=== PATIENT | female | born 1980 | race Caucasian/White ===

== ENCOUNTER 2018-07-18 16:47 | Emergency (ER) | payer MEDICAID ==
[~2018-07-18] VITALS: Ht 157.5 cm; Wt 99.0 kg
[2018-07-18 16:56] VITALS: Ht 157.5 cm; Wt 99.0 kg
[2018-07-18] MEDS ORDERED: CALAMINE TOP (17:20)
[2018-07-18] MEDS ORDERED: ACET500C5 PO (17:20)
[2018-07-18] MEDS ORDERED: BEN25 PO (17:20)
--- NOTE | 2018-07-18 17:22 | ERD ---
ER Documentation Chief Complaint Chief Complaint GENERALIZED ITCHY RASH WITH FEVER X 5 DAYS HPI This 38-year-old female presents with 5-day history of blisters and a rash which are itchy on the face, trunk and extremities. She denies any measured fevers although felt febrile. She denies any cough, shortness breath, vomiting, abdominal pain, urinary complaints. ROS All systems reviewed and are negative except as per history of present illness. Medications Home Meds Active Scripts Calamine* (Calamine*) 120 Ml Lotion, 1 APPLIC TOP Q4H for RASH for 7 Days, EA Prov:ODILIA GARCIA MD 07/18/18 Diphenhydramine Hcl* (Benadryl*) 25 Mg Cap, 25 MG PO Q6, #20 CAP Prov:ODILIA GARCIA MD 07/18/18 Acetaminophen* (Tylophen*) 500 Mg Capsule, 1 CAP PO Q6H PRN for PAIN AND OR ELEVATED TEMP, #20 CAP Prov:ODILIA GARCIA MD 07/18/18 Allergies Allergies: Coded Allergies: No Known Allergies (Verified Allergy, Mild, 12/28/11) No Known Drug Allergy (Unverified Allergy, Unknown, 04/12/14) PMhx/Soc History of Surgery: Yes (C [facility], APPENDECTOMY 2001) Anesthesia Reaction: No Hx Neurological Disorder: No Hx Respiratory Disorders: No Hx Cardiac Disorders: No Hx Psychiatric Problems: No Hx Miscellaneous Medical Probl: Yes (HERNIA) Hx Alcohol Use: No Hx Substance Use: No Hx Tobacco Use: No FmHx Family History: No diabetes, No coronary disease, No other Physical Exam Vitals Vital Signs Date Temp Pulse Resp B/P (MAP) Pulse Ox O2 O2 Flow FiO2 Time Delivery Rate 07/18/18 99.4 81 16 135/78 99 Room Air 18:47 (97) 07/18/18 99.4 86 18 143/80 99 16:56 (101) Physical Exam Const: No acute distress Head: Atraumatic Eyes: Normal Conjunctiva ENT: Normal External Ears, Nose and Mouth. Neck: Full range of motion. No meningismus. Resp: Clear to auscultation bilaterally Cardio: Regular rate and rhythm, no murmurs Abd: Soft, non tender, non distended. Normal bowel sounds Skin: No petechiae or purpura. Scattered vesicular erythematous lesions on the face, trunk and extremities. Back: No midline or flank tenderness Ext: No cyanosis, or edema Neur: Awake and alert Psych: Normal Mood and Affect Procedures/MDM She presents with signs and symptoms of uncomplicated varicella. Will treat with Benadryl, Tylenol, Calan, primary care follow-up, return precautions and measures to prevent to unvaccinated or other susceptible individuals. The patient was stable with no new complaints during the ER course. Clinically, there is no current evidence to suggest meningitis, sepsis, acute abdomen, pneumonia, stroke, acute coronary syndrome, pulmonary embolism, aortic dissection or any other emergent condition appearing to require further evaluation or hospitalization. Patient counseled regarding my diagnostic impression and care plan. Prior to discharge all questions answered. Pt agrees with treatment plan and understands strict return precautions. Pt is instructed to follow up with primary care provider within 24-48 hours. Precautionary instructions provided including instructions to return to the ER if not improving or for any worsening or changing symptoms or concerns. Departure Diagnosis: Primary Impression: Varicella Varicella complications: without complication Qualified Codes: B01.9 - Varicella without complication Condition: Stable Patient Instructions: Chickenpox Additional Instructions: Cheque otro vez con bray doctor primario en el proximo mason or regresa para mas o nueva simptomas. ES CONTIAGIOSA A LOS JAYLIN SIN VACCUNES . ODILIA GARCIA MD Jul 18, 2018 17:22
[2018-07-18 18:47] VITALS: BP 135/78; PULSE 81; RESP 16
== END 2018-07-18 18:55 | disposition home or self-care (01) ==
LOC: FTE 16:47
DX: B01.9 Varicella without complication (principal)
CPT/HCPCS: 99282